=== PATIENT | female | born 1975 | race Caucasian/White ===

== ENCOUNTER 2019-09-02 18:33 | Emergency (ER) | payer OTHER ==
[~2019-09-02 18:33] MED LIST: Iopamidol 370 76% 100 ML VIAL ONE
[2019-09-02 19:36] LABS: ALT (SGPT) 27 U/L (8-55); AST (SGOT) 27 U/L (5-34); Albumin 4.1 g/dL (3.5-5.0); Alcohol Less than 10 mg/dL (Less than 10); Alkaline Phosphatase 56 U/L (40-110); Anion Gap 13 mmol/L (10-20); BUN (Urea Nitrogen) 10 mg/dL (7.0-18.7); Bilirubin, Total 0.3 mg/dL (0.2-1.2); Calc. Creatinine Clearance 0 mL/min (70-130); Carbon Dioxide 26 mmol/L (22-29); Chloride 106 mmol/L (98-107); Estimated GFR-MDRD 64; Globulin 2.8 g/dL (2.4-3.5); Glucose 115 mg/dL (70-105); Lipase 11 U/L (8-78); Protein, Total 6.9 g/dL (6.0-8.3); Prothrombin Time 13.1 SEC (12.0-14.7); Sodium 141 mmol/L (136-145)
[2019-09-02 19:41] LABS: PTT 19.6 SEC (22.9-36.1)
[2019-09-02 19:54] LABS: #Basophils 0.1 thou/uL (0.0-0.2); #Monocytes 0.8 thou/uL (0.11-0.59); #Neutrophils 9.9 thou/uL (1.40-6.50); %Basophils 0.6 % (0.0-1.0); %Lymphocytes 8.4 % (21.0-51.0); %Neutrophils 84.1 % (42.0-75.0); Hemoglobin 14.8 g/dL (12.0-16.0); Mean Corpuscular Hemoglobin 31.4 pg (27.0-31.0); Mean Corpuscular Volume 97.9 fL (78.0-98.0); Mean Platelet Volume 13.2 fL (7.4-10.4); Platelet Count 253 thou/uL (130-400); RBC Distribution Width 12.1 % (11.5-14.5); Red Blood Cell (RBC) Count 4.72 mill/uL (4.20-5.40); White Blood Cell (WBC) Count 11.8 thou/uL (4.8-10.8)
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
[2019-09-02 21:38] LABS: Bilirubin Negative (Negative); Blood, Urine Negative (Negative); Clarity Clear (Clear); Glucose, Urine (Dipstick) Negative (Negative); Leukocyte Negative (Negative); Nitrite Negative (Negative); Protein, Urine (Dipstick) Negative (Neg-Trace)
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
== END 2019-09-02 22:28 | disposition home or self-care (01) ==
LOC: NAV ERS 18:33
DX: S00.83XA Contusion of other part of head, initial encounter (principal); S20.212A Contusion of left front wall of thorax, initial encounter; S20.211A Contusion of right front wall of thorax, initial encounter; M79.661 Pain in right lower leg; G89.29 Other chronic pain; F17.210 Nicotine dependence, cigarettes, uncomplicated; V43.12XA Car passenger injured in collision with other type car in nontraffic accident, initial encounter
CPT/HCPCS: 70450; 70486; 71260; 80053; 80307; 81003; 83690; 84484; 85025; 85610; 85730; 93005; 94760; Q9967

== ENCOUNTER 2020-11-27 16:55 | Emergency (ER) | payer OTHER | END 2020-11-27 17:30 | disposition home or self-care (01) | LOC: NAV ERS 16:55 | DX: T63.301A Toxic effect of unspecified spider venom, accidental (unintentional), initial encounter (principal); F17.210 Nicotine dependence, cigarettes, uncomplicated | CPT/HCPCS: 99282 ==